=== PATIENT | female | born 1985 | race Hispanic/Latino ===

== ENCOUNTER 2018-03-13 05:30 | Inpatient (IN) | payer OTHER ==
[2018-03-13] MEDS: Lactated Ringer's 1,000 ML IV SCH ×2 (07:10→10:51)
[2018-03-13] MEDS ORDERED: Acetaminophen 500 MG TAB PO PRN (07:37)
[2018-03-13] MEDS ORDERED: LR 500 ML/Oxytocin 10 units 500 ML IV SCH ×2 (07:37)
[2018-03-13] MEDS ORDERED: Lidocaine 1% (PF) 30 ML VIAL SC PRN (07:37)
[2018-03-13] MEDS ORDERED: HYDROcodone/Acetaminophen 5/325 mg Tablet PO PRN ×2 (07:37→17:42)
[2018-03-13] MEDS ORDERED: Acetaminophen/Codeine 30-300mg Tablet PO PRN ×2 (07:37→17:42)
[2018-03-13] MEDS ORDERED: Promethazine HCl 25 MG/ML VIAL IM PRN ×2 (07:37→13:26)
[2018-03-13] MEDS ORDERED: LR / Pitocin 40 units/1000 ml 1,000 ML IV PRN (07:37)
[2018-03-13] MEDS ORDERED: Ondansetron HCl/PF 4 MG/2 ML Vial IVP PRN ×3 (07:37→17:42)
[2018-03-13] MEDS ORDERED: Ibuprofen 800 MG TAB PO PRN (07:37)
[2018-03-13 07:43] LABS: Hemoglobin 13.4 g/dL (12.0-16.0); Mean Corpuscular HGB CONC 35.3 g/dL (32.0-36.0); Mean Corpuscular Hemoglobin 31.6 pg (27.0-31.0); Mean Corpuscular Volume 89.7 fl (81.0-99.0); Mean Platelet Volume 9.1 fL (7.4-10.4); Platelet Count 146 thou/uL (130-400); RBC Distribution Width 12.9 % (11.5-14.5); Red Blood Cell (RBC) Count 4.24 mill/uL (4.20-5.40); White Blood Cell (WBC) Count 5.8 thou/uL (4.8-10.8)
[2018-03-13 07:56] VITALS: BMI 35.4
[2018-03-13 08:20] LABS: HBSAg Index 0.22 S/CO (0-0.99); Hep B Surf Ag Non-Reactive S/CO (NonReactive); Syphilis Antibody Nonreactive (Nonreactive); Syphilis Antibody Index 0.06 S/CO (<1.00 Non-Reactive)
[2018-03-13] MEDS ORDERED: Penicillin G Potassium 5 MILL.UNITS VIAL ONE ×2 (08:20)
[2018-03-13] MEDS ORDERED: DISCONTINUE ALL PREVIOUS NARCOTICS FS SCH (09:00)
[2018-03-13] MEDS ORDERED: Bupivacaine 0.5% 20 ML, fentaNYL Citrate/PF 400 MCG in Sodium Chloride 0.9% 72 ML EPIDURAL SCH (09:00)
[2018-03-13] MEDS ORDERED: Fentanyl 100 MCG/2 ML VIAL ONE (13:05)
[2018-03-13] MEDS ORDERED: Bupivacaine 0.5% 10 ML VIAL ONE (13:05)
[2018-03-13] MEDS ORDERED: Penicillin G 2.5 MILL.units 50 ML ONE (13:12)
[2018-03-13] MEDS ORDERED: Naloxone HCl 0.4 mg/ml Vial IVP PRN ×2 (13:26)
[2018-03-13] MEDS ORDERED: Eucerin (Mineral Oil/Petrolatum,White) 30 gm Jar TOP PRN (13:26)
[2018-03-13] MEDS ORDERED: ePHEDrine/0.9% NaCl/PF SYRINGE 50 mg/10 ml SLOW IVP PRN (13:26)
[2018-03-13] MEDS ORDERED: diphenhydrAMINE 50 MG/ML VIAL IVP PRN (13:26)
[2018-03-13] MEDS ORDERED: Acetaminophen 325 MG TAB PO PRN (13:26)
[2018-03-13] MEDS ORDERED: Lactated Ringer's 500 ML IV PRN (13:26)
[2018-03-13] MEDS ORDERED: Fentanyl 100 MCG/2 ML VIAL I-THECAL ONE (13:27)
[2018-03-13] MEDS ORDERED: Communication Order-Pharmacy FS SCH (13:30)
[2018-03-13] MEDS ORDERED: Fentanyl 4mcg/Marcaine 0.1% Cassette 100 ML EPIDURAL SCH (13:30)
[2018-03-13] MEDS ORDERED: Bupivacaine 0.25% 10 ML VIAL EPIDURAL ONE (13:30)
[2018-03-13] MEDS ORDERED: Oxytocin 10 UNITS/ML VIAL ONE ×2 (14:10)
[2018-03-13] MEDS ORDERED: Milk Of Magnesia 30 ML UDCUP PO PRN (17:42)
[2018-03-13] MEDS ORDERED: Benzocaine/Menthol 20-0.5% 60 ML CAN TOP PRN (17:42)
[2018-03-13] MEDS ORDERED: Bisacodyl 10 MG SUPP PR PRN (17:42)
[2018-03-13] MEDS ORDERED: Lanolin Ointment 7 GM TUBE TOP PRN (17:42)
[2018-03-13] MEDS ORDERED: LR / Pitocin 40 units/1000 ml 1,000 ML IV SCH (17:42)
[2018-03-13] MEDS ORDERED: traMADol HCl 50 MG TAB PO PRN (17:42)
[2018-03-13] MEDS ORDERED: diphenhydrAMINE 25 MG CAP PO PRN (17:42)
[2018-03-13] MEDS ORDERED: Preparation H Ointment 28 GM TUBE PR PRN (17:42)
[2018-03-13] MEDS ORDERED: Ferrous Sulfate 325 MG TAB PO SCH (18:00)
[2018-03-13] MEDS ORDERED: Prenatal Vitamin 1 TAB PO SCH (18:15)
[2018-03-13] MEDS: Ibuprofen 800 MG TAB PO SCH (18:25)
[2018-03-13] MEDS: Docusate Calcium (SURFAK) 240 MG CAP PO SCH (21:20)
[2018-03-14] MEDS: Ibuprofen 800 MG TAB PO SCH ×2 (01:57→11:41)
[2018-03-14] MEDS ORDERED: Ferrous Sulfate 325 MG TAB PO SCH (08:00)
[2018-03-14 08:28] VITALS: TEMP 97.6
[2018-03-14] MEDS: Docusate Calcium (SURFAK) 240 MG CAP PO SCH (08:53)
[2018-03-14] MEDS ORDERED: Prenatal Vitamin 1 TAB PO SCH (09:00)
[2018-03-14] MEDS ORDERED: Adacel (T-DAP) 0.5 ML VIAL IM ONE (12:30)
[2018-03-14 14:25] VITALS: BP 112/65
== END 2018-03-14 17:25 | disposition home or self-care (01) | DRG 775 ==
LOC: L&D 06:28 → 3SW 17:45
PROVIDERS: ADMIT Family Medicine; ATTEND Family Medicine
PROC: 10E0XZZ Delivery of Products of Conception, External Approach (ICD-10-PCS; principal; 2018-03-13)
PROC: 10907ZC Drainage of Amniotic Fluid, Therapeutic from Products of Conception, Via Natural or Artificial Opening (ICD-10-PCS; 2018-03-13)
PROC: 3E0234Z Introduction of Serum, Toxoid and Vaccine into Muscle, Percutaneous Approach (ICD-10-PCS; 2018-03-14)
DX: O24.420 Gestational diabetes mellitus in childbirth, diet controlled (principal); O76 Abnormality in fetal heart rate and rhythm complicating labor and delivery; Z3A.40 40 weeks gestation of pregnancy; Z37.0 Single live birth; Z23 Encounter for immunization
CPT/HCPCS: 51702; 85027; 86780; 87340; 90715; J2540; J2590; J3010; J3490; J7050; J7120

== ENCOUNTER 2018-03-24 08:15 | Emergency (ER) | payer OTHER ==
[2018-03-24] MEDS ORDERED: Ondansetron ODT 4 MG TAB ONE (08:54)
[2018-03-24 09:14] LABS: #Lymphocytes 1.5 thou/uL (1.20-3.40); #Monocytes 0.3 thou/uL (0.11-0.59); #Neutrophils 3.1 thou/uL (1.40-6.50); %Basophils 0.6 % (0.0-1.0); %Eosinophils 0.8 % (0.0-10.0); %Lymphocytes 29.7 % (21.0-51.0); %Monocytes 6.1 % (0.0-10.0); %Neutrophils 62.8 % (42.0-75.0); Hemoglobin 17.4 g/dL (12.0-16.0); Mean Corpuscular HGB CONC 35.3 g/dL (32.0-36.0); Mean Corpuscular Hemoglobin 32.2 pg (27.0-31.0); Mean Corpuscular Volume 91.2 fl (81.0-99.0); Mean Platelet Volume 7.4 fL (7.4-10.4); Platelet Count 231 thou/uL (130-400)
[2018-03-24 09:35] LABS: ALT (SGPT) 27 U/L (8-55); AST (SGOT) 18 U/L (5-34); Albumin 3.9 g/dL (3.5-5.0); Alkaline Phosphatase 137 U/L (40-150); Anion Gap 13 mmol/L (10-20); BUN (Urea Nitrogen) 7 mg/dL (7.0-18.7); Bilirubin, Total 0.6 mg/dL (0.2-1.2); CK (CPK) 31 U/L (29-168); Calc. Creatinine Clearance 0 mL/min (70-130); Calcium 9.3 mg/dL (7.8-10.44); Carbon Dioxide 23 mmol/L (22-29); Chloride 108 mmol/L (98-107); Estimated GFR-MDRD Greater than 90; Globulin 3.2 g/dL (2.4-3.5); Glucose 88 mg/dL (70-105); Lipase 17 U/L (8-78); Potassium 3.7 mmol/L (3.5-5.1); Protein, Total 7.1 g/dL (6.0-8.3); Sodium 140 mmol/L (136-145)
== END 2018-03-24 11:15 | disposition home or self-care (01) ==
LOC: ERS 08:15
DX: O99.285 Endocrine, nutritional and metabolic diseases complicating the puerperium (principal); E86.0 Dehydration
CPT/HCPCS: 80053; 82550; 83690; 85025; 96360; 96361; Q0162